=== PATIENT | male | born 1995 | race Caucasian/White ===

== ENCOUNTER 2022-09-14 09:23 | Emergency (ER) | payer OTHER ==
[2022-09-14 09:33] VITALS: BP 130/88; PULSE 92; RESP 18; TEMP 98.4
--- NOTE | 2022-09-14 09:55 | ED ---
General Adult HPI - General Chief complaint: Psychiatric Symptoms Stated complaint: mental health Time Seen by Provider: 09/14/22 09:37 Source: patient Mode of arrival: ambulatory Limitations: no limitations - History of Present Illness Initial comments: Dictation was produced using [employer] dictation software. please excuse any grammatical, word or spelling errors. Chief Complaint: 27-year-old male brought in by father for psychiatric evaluation History of Present Illness: 27-year-old male who is brought in for psychiatric evaluation. He was evaluated by the psychiatry. He is also have another intake evaluation in a couple weeks however father did not feel like he couldn't wait that long. They're instructed to come to the emergency room to be evaluated to expedite the process of being admitted to a [place] psych facility. Patient history of dramatic brain injury from . Father reports that patient has been having insomnia and bizarre behavior. Denies any suicidal or homicidal ideation. Denies any delusions or paranoia. No visual or auditory hallucinations. The ROS documented in this emergency department record has been reviewed and confirmed by me. Those systems with pertinent positive or negative responses have been documented in the HPI. All other systems are other negative and/or noncontributory. PHYSICAL EXAM: General Impression: Alert and oriented x3, not in acute distress HEENT: Normocephalic atraumatic, extra-ocular movements intact, pupils equal and reactive to light bilaterally, mucous membranes moist. Cardiovascular: Heart regular rate and rhythm Chest: Able to complete full sentences, no retractions, no tachypnea Abdomen: abdomen soft, non-tender, non-distended, no organomegaly Musculoskeletal: Pulses present and equal in all extremities, no peripheral edema Motor: no focal deficits noted Neurological: CN II-XII grossly intact, no focal motor or sensory deficits noted Skin: Intact with no visualized rashes Psych: Flat affect ED course: 27-year-old male presents emergency department for psychiatric evaluation. All signs upon arrival are within acceptable limits. Patient is a medical complaints. Physical examination is benign. Patient medically cleared for EPS evaluation. Nursing notes and chart review was performed Patient evaluate by EPS. EPS recommends discharge with outpatient follow-up. [facility] - Related Data Home Medications Medication Instructions Recorded Confirmed No Known Home Medications 09/14/22 09/14/22 Allergies Allergy/AdvReac Type Severity Reaction Status Date / Time No Known Allergies Allergy Verified 09/14/22 11:30 Review of Systems ROS Statement: Those systems with pertinent positive or pertinent negative responses have been documented in the HPI. ROS Other: All systems not noted in ROS Statement are negative. Past Medical History Additional Past Medical History / Comment(s): TBI History of Any Multi-Drug Resistant Organisms: None Reported Past Surgical History: No Surgical Hx Reported Past Psychological History: PTSD Smoking Status: Current every day smoker Past Alcohol Use History: None Reported Past Drug Use History: None Reported General Exam Limitations: no limitations Course Vital Signs 09/14/22 09:27 Temperature 98.4 F Pulse Rate 92 Respiratory 18 Rate Blood Pressure 130/88 O2 Sat by Pulse 99 Oximetry Disposition Clinical Impression: Encounter for psychiatric assessment Disposition: HOME SELF-CARE Condition: Good Is patient prescribed a controlled substance at d/c from ED?: No Referrals: None,Stated [Primary Care Provider] - 1-2 days Time of Disposition: 14:24
== END 2022-09-14 14:00 | disposition home or self-care (01) ==
LOC: EC 09:23
DX: Z00.8 Encounter for other general examination (principal); F17.200 Nicotine dependence, unspecified, uncomplicated
CPT/HCPCS: 82075; 99284